=== PATIENT | male | born 1965 | race Hispanic/Latino ===

== ENCOUNTER 2025-06-17 06:10 | Day surgery (SDC) | payer OTHER, SELFPAY ==
[2025-06-03 09:37] LABS: Hematocrit 48.7 % (39.0-52.0); Hemoglobin 15.3 g/dL (13.0-18.0); Mean Corp Hgb Conc. 31.4 g/dL (33.0-37.0); Mean Corpuscular Volume 85.9 fL (80.0-94.0); Platelet Count 279 10^3/uL (130-400); Red Cell Dist. Width 13.2 % (11.5-14.5)
[2025-06-03 09:52] LABS: ALT (SGPT) 27 U/L (0-50); AST (SGOT) 22 U/L (17-59); Albumin 4.1 g/dl (3.5-5.0); Alkaline Phosphatase 98 U/L (38-126); Blood Urea Nitrogen 16 mg/dl (9-20); Calcium 8.9 mg/dl (8.4-10.2); Carbon Dioxide 29 mmol/L (22-30); Chloride 108 mmol/L (98-107); Glucose 109 mg/dl (70-99); Potassium 4.6 mmol/L (3.5-5.1); Sodium 144 mmol/L (135-145); Total Protein 7.1 g/dl (6.3-8.2); eGFR > 60.00
[2025-06-03 14:02] VITALS: BMI 34.9
[2025-06-17] VITALS (11 sets, daily range): BP systolic 115–144; BP diastolic 74–91; BMI 34.9
[2025-06-17] MEDS: NORMOSOL-R/PLASMALYTE-A 1000 IV (06:46)
[2025-06-17] MEDS: DILAUDID 0.25 MG IV ×3 (10:44→11:06)
[2025-06-17] MEDS: ROXICODONE 5 MG PO (12:12)
[2025-06-17] MEDS: ERYTHROMYCIN 0.5% OPHTHALMIC OINTMENT 0.5 APPLIC OPHTH (12:19)
== END 2025-06-17 12:48 | disposition home or self-care (01) ==
LOC: SDS 06:10
PROVIDERS: ATTENDING PHYSICIAN Otolaryngology Facial Plastic Surgery; FAMILY PHYSICIAN Family Medicine
DX: G47.33 Obstructive sleep apnea (adult) (pediatric) (principal); Z68.34 Body mass index [BMI] 34.0-34.9, adult
CPT/HCPCS: 64582; 71045; 80053; 85027; 93005; C1767; C1778; C1787